=== PATIENT | male | born 1950 | race Caucasian/White ===

== ENCOUNTER 2021-05-10 09:13 | Emergency (ER) | payer OTHER, MEDICARE ==
[2021-05-10 09:24] VITALS: BP 152/77; PULSE 73; TEMP 98.4; BMI 25.0
== END 2021-05-10 11:16 | disposition home or self-care (01) ==
LOC: JER 09:13
DX: S09.90XA Unspecified injury of head, initial encounter (principal); W22.8XXA Striking against or struck by other objects, initial encounter
CPT/HCPCS: 70450-TC; 99284-25

== ENCOUNTER 2021-06-19 07:41 | Emergency (ER) | payer OTHER, MEDICARE ==
[2021-06-19 08:24] VITALS: BP 122/79; PULSE 118; TEMP 98.2; BMI 26.2
[2021-06-19 10:39] LABS: BASO % 0.5 % (0-2.0); EOS % 0.1 % (0-4.5); HEMATOCRIT 41.4 % (35.4-49); HEMOGLOBIN 13.1 GM/dL (11.7-16.9); LYMPH % 12.2 % (8-40); MCH 22.5 pg (25.7-33.7); MCHC 31.8 g/dl (32.0-35.9); MEAN CELL VOLUME 70.7 fl (80-96); MEAN PLT VOLUME 8.7 fl (7.5-11.1); MONO % 7.6 % (3.8-10.2); NEUT % 79.6 % (42.8-82.8); PLATELET COUNT 167 10^3/uL (134-434); RBC 5.85 M/mm3 (4.00-5.60); RDW 15.6 % (11.9-15.9); WHITE BLOOD COUNT 7.9 K/mm3 (4.0-10.0)
[2021-06-19 11:07] LABS: CALCIUM 9.2 mg/dL (8.5-10.1)
[2021-06-19 11:08] LABS: ALBUMIN 4.1 g/dl (3.4-5.0); BLOOD UREA NITROGEN 18.6 mg/dL (7-18)
[2021-06-19 11:11] LABS: CREATININE 0.9 mg/dL (0.55-1.3)
[2021-06-19 11:13] LABS: BILIRUBIN,TOTAL 0.7 mg/dL (0.2-1); TOT PROT 7.4 g/dl (6.4-8.2)
[2021-06-19] MEDS ORDERED: ACETAMINOPHEN 325 MG TABLET (FP) PO ONE (12:17)
[2021-06-19 12:18] LABS: URINE APPEARANCE TURBID; URINE COLOR RED
[2021-06-19 12:21] LABS: EPI CELLS 3+ /uL (0-25.1); URINE BACTERIA 2+ /uL (0-1359); URINE RBC >100 /uL (0-23.9)
[2021-06-19] MEDS ORDERED: ACETAMINOPHEN 325 MG TABLET (FP) ONE (12:30)
== END 2021-06-19 12:30 | disposition home or self-care (01) ==
LOC: JER 07:41
DX: R31.0 Gross hematuria (principal); R33.9 Retention of urine, unspecified
CPT/HCPCS: 36415; 80053; 81003; 85025; 87086; 99284-25

== ENCOUNTER 2021-06-19 17:50 | Emergency (ER) | payer OTHER, MEDICARE ==
[2021-06-19 18:04] VITALS: BP 125/76; PULSE 104; TEMP 97.7; BMI 25.8
== END 2021-06-19 20:29 | disposition home or self-care (01) ==
LOC: JER 17:50
DX: R31.0 Gross hematuria (principal)
CPT/HCPCS: 36415; 80053; 81003; 85025; 87086; 99283-25; 99284-25

== ENCOUNTER 2022-09-17 12:41 | Observation (INO) | payer OTHER, MEDICARE ==
[2022-09-17 12:51] VITALS: BMI 28.1
[2022-09-17 13:46] LABS: BASO % 0.7 % (0-2.0); EOS % 2.6 % (0-4.5); HEMATOCRIT 45.4 % (35.4-49); LYMPH % 13.7 % (8-40); MCH 21.8 pg (25.7-33.7); MCHC 30.8 g/dl (32.0-35.9); MEAN CELL VOLUME 70.8 fl (80-96); MEAN PLT VOLUME 8.4 fl (7.5-11.1); MONO % 5.9 % (3.8-10.2); NEUT % 77.1 % (42.8-82.8); PLATELET COUNT 192 10^3/uL (134-434); RBC 6.41 M/mm3 (4.00-5.60); RDW 15.3 % (11.9-15.9); WHITE BLOOD COUNT 7.3 K/mm3 (4.0-10.0)
[2022-09-17 13:54] LABS: INR 1.06 (0.83-1.09); PROTHROMBIN TIME (PATIENT) 12.2 SEC (9.7-13.0)
[2022-09-17 13:57] LABS: ACTIVATED PTT 30.7 SECONDS (25.2-36.5)
[2022-09-17 14:08] LABS: CALCIUM 9.6 mg/dL (8.5-10.1)
[2022-09-17 14:09] LABS: ALBUMIN 4.2 g/dl (3.4-5.0); BLOOD UREA NITROGEN 18.1 mg/dL (7-18)
[2022-09-17 14:12] LABS: CREATININE 1.1 mg/dL (0.55-1.3)
[2022-09-17 14:13] LABS: ANISOCYTOSIS 3+; BILIRUBIN,TOTAL 0.5 mg/dL (0.2-1); MACROCYTOSIS 0
[2022-09-17 14:14] LABS: TOT PROT 7.1 g/dl (6.4-8.2)
[2022-09-17] MEDS ORDERED: ENOXAPARIN NA (PORCINE) 80 MG/0.8 ML DISP.SYRIN SQ SCH (17:30)
[2022-09-17] MEDS ORDERED: ATORVASTATIN CA 20 MG TABLET (FP) PO SCH (22:00)
[2022-09-17] MEDS ORDERED: APIXABAN 5 MG TABLET PO SCH (22:00)
[2022-09-17] MEDS ORDERED: ATORVASTATIN CA 20 MG TABLET (FP) ONE (23:41)
[2022-09-17] MEDS ORDERED: ENOXAPARIN NA (PORCINE) 80 MG/0.8 ML DISP.SYRIN SQ ONE (23:41)
[2022-09-17] MEDS: ENOXAPARIN NA (PORCINE) 80 MG/0.8 ML DISP.SYRIN SQ SCH (23:54)
[2022-09-18 08:42] LABS: HEMATOCRIT 43.4 % (35.4-49); HEMOGLOBIN 13.4 GM/dL (11.7-16.9); MCH 21.9 pg (25.7-33.7); MCHC 30.9 g/dl (32.0-35.9); MEAN CELL VOLUME 70.9 fl (80-96); MEAN PLT VOLUME 8.6 fl (7.5-11.1); PLATELET COUNT 171 10^3/uL (134-434); RBC 6.12 M/mm3 (4.00-5.60); RDW 15.4 % (11.9-15.9); WHITE BLOOD COUNT 6.4 K/mm3 (4.0-10.0)
[2022-09-18] MEDS ORDERED: amLODIPine BESYLATE 2.5 MG TABLET (FP) ONE (08:53)
[2022-09-18] MEDS ORDERED: PANTOPRAZOLE 40 MG TABLET PO ONE (08:53)
[2022-09-18] MEDS ORDERED: ENOXAPARIN NA (PORCINE) 80 MG/0.8 ML DISP.SYRIN SQ ONE (08:53)
[2022-09-18] MEDS ORDERED: metoPROLOL SUCCINATE 25 MG TAB.SR.24H (FP) PO ONE ×2 (08:53→09:22)
[2022-09-18 08:59] LABS: CALCIUM 8.8 mg/dL (8.5-10.1)
[2022-09-18 09:00] LABS: BLOOD UREA NITROGEN 18.9 mg/dL (7-18)
[2022-09-18 09:03] LABS: PHOSPHOROUS 3.5 mg/dL (2.5-4.9)
[2022-09-18] MEDS ORDERED: metoPROLOL SUCCINATE 25 MG TAB.SR.24H (FP) PO SCH ×2 (10:00)
[2022-09-18] MEDS ORDERED: PANTOPRAZOLE 40 MG TABLET PO SCH (10:00)
[2022-09-18] MEDS ORDERED: amLODIPine BESYLATE 2.5 MG TABLET (FP) PO SCH (10:00)
[2022-09-18 11:40] VITALS: PULSE 79; RESP 20; TEMP 98.1
[2022-09-18] MEDS: ENOXAPARIN NA (PORCINE) 80 MG/0.8 ML DISP.SYRIN SQ SCH (11:51)
[2022-09-18 13:52] VITALS: BP 147/93
== END 2022-09-18 14:00 | disposition home or self-care (01) ==
LOC: JER 12:41 → JERBED 15:43 → INTOOBSV 15:43
PROVIDERS: ADMIT Internal Medicine; ATTEND Internal Medicine
PROC: 3E023GC Introduction of Other Therapeutic Substance into Muscle, Percutaneous Approach (ICD-10-PCS; principal; 2022-09-17)
DX: I48.91 Unspecified atrial fibrillation (principal); I10 Essential (primary) hypertension; E78.5 Hyperlipidemia, unspecified; Z29.8 Encounter for other specified prophylactic measures; R42 Dizziness and giddiness
CPT/HCPCS: 36415; 71045-TC-FY; 80048; 80053; 82728; 83540; 83550; 83735; 83880; 84100; 84484; 85025; 85027; 85610; 85730; 93005; 93010; 96372; 99285-25; C9803-CS; G0378; U0003; U0005

== ENCOUNTER 2022-11-29 05:16 | Day surgery (SDC) | payer OTHER, MEDICARE ==
[2022-11-27 14:17] VITALS: BMI 27.3
[2022-11-29] MEDS ORDERED: PROPOFOL 20 ML ONE (07:09)
[2022-11-29] MEDS ORDERED: LIDOCAINE HCL 2% 100 MG/5 ML DISP.SYRIN ONE (07:09)
[2022-11-29] MEDS ORDERED: ceFAZolin SODIUM 1 GM VIAL ONE (07:09)
[2022-11-29] MEDS ORDERED: ROCURONIUM BROMIDE 50 MG/5 ML SYRINGE ONE (07:10)
[2022-11-29] MEDS ORDERED: MIDAZOLAM HCL 2 MG/2 ML SINGLE DOSE VIAL ONE (07:10)
[2022-11-29] MEDS ORDERED: SUCCINYLCHOLINE CHLORIDE 200 MG/10 ML SYRINGE ONE (07:10)
[2022-11-29] MEDS ORDERED: BUPIVACAINE HCL/PF 0.5% (5MG/ML) 10 ML VIAL ONE (07:46)
[2022-11-29] MEDS ORDERED: BUPIVACAINE HCL/PF 0.5% (5MG/ML) 10 ML VIAL IJ ONE ×3 (08:09→08:51)
[2022-11-29] MEDS ORDERED: ceFAZolin SODIUM 1 GM VIAL IVPB ONE ×2 (08:09→08:37)
[2022-11-29] MEDS ORDERED: DEXAMETHASONE SOD PHOSPHATE 4 MG/1 ML VIAL ONE (08:41)
[2022-11-29] MEDS ORDERED: ONDANSETRON 4 MG/2 ML VIAL ONE ×2 (09:30→11:14)
[2022-11-29] MEDS ORDERED: ACETAMINOPHEN 500 MG TABLET (FP) PO PRN (10:57)
[2022-11-29] MEDS ORDERED: IBUPROFEN 600 MG TABLET (FP) PO PRN (10:57)
[2022-11-29] MEDS ORDERED: oxyCODONE HCL 5 MG TABLET PO PRN (11:36)
[2022-11-29] MEDS ORDERED: ONDANSETRON 4 MG/2 ML VIAL IVPUSH PRN (11:36)
[2022-11-29] MEDS ORDERED: LACTATED RINGERS SOLUTION 1,000 ML IV SCH (11:45)
[2022-11-29] MEDS ORDERED: HALOPERIDOL LACTATE 5 MG/ML IM ONE ×2 (13:26→13:32)
[2022-11-29] MEDS ORDERED: HALOPERIDOL DECANOATE 500 MG/5ML MDV IM ONE (13:32)
[2022-11-29 13:46] VITALS: RESP 20; TEMP 97.7
[2022-11-29 17:18] VITALS: BP 156/87; PULSE 85
== END 2022-11-29 15:22 | disposition home or self-care (01) ==
LOC: JASU-SURG 05:16
PROVIDERS: ATTEND Surgery
PROC: 8E0W4CZ Robotic Assisted Procedure of Trunk Region, Percutaneous Endoscopic Approach (ICD-10-PCS; 2022-11-29)
PROC: 0YU64JZ Supplement Left Inguinal Region with Synthetic Substitute, Percutaneous Endoscopic Approach (ICD-10-PCS; principal; 2022-11-29 08:00)
DX: K40.90 Unilateral inguinal hernia, without obstruction or gangrene, not specified as recurrent (principal)
CPT/HCPCS: 49650; S2900; 94760; C1781

== ENCOUNTER 2022-12-01 08:29 | Emergency (ER) | payer OTHER, MEDICARE ==
[2022-12-01 08:34] VITALS: RESP 18; BMI 27.3
[2022-12-01] MEDS ORDERED: SODIUM CHLORIDE 0.9% 500 ML INFUS.BAG IV ONE (08:59)
[2022-12-01 09:46] LABS: BASO % 0.6 % (0-2.0); EOS % 2.5 % (0-4.5); HEMOGLOBIN 13.1 GM/dL (11.7-16.9); LYMPH % 11.7 % (8-40); MCH 22.5 pg (25.7-33.7); MCHC 31.9 g/dl (32.0-35.9); MEAN CELL VOLUME 70.7 fl (80-96); MONO % 7.2 % (3.8-10.2); PLATELET COUNT 171 10^3/uL (134-434); RDW 16.8 % (11.9-15.9); WHITE BLOOD COUNT 7.5 K/mm3 (4.0-10.0)
[2022-12-01 09:58] LABS: ALBUMIN 3.9 g/dl (3.4-5.0); BLOOD UREA NITROGEN 19.3 mg/dL (7-18); CALCIUM 8.9 mg/dL (8.5-10.1)
[2022-12-01 10:02] LABS: BILIRUBIN,TOTAL 0.6 mg/dL (0.2-1)
[2022-12-01 10:49] VITALS: BP 153/88; PULSE 72; TEMP 98.1
== END 2022-12-01 10:30 | disposition home or self-care (01) ==
LOC: JER 08:29
DX: R19.7 Diarrhea, unspecified (principal)
CPT/HCPCS: 36415; 80053; 82272; 85025; 93005; 93010; 99284-25

== ENCOUNTER 2023-09-17 08:17 | Emergency (ER) | payer OTHER, MEDICARE ==
[2023-09-17 08:29] VITALS: BP 170/78; PULSE 65; RESP 18; TEMP 98.3; BMI 26.6
[2023-09-17 11:02] LABS: BASO % 0.4 % (0-2.0); EOS % 2.3 % (0-4.5); HEMATOCRIT 41.6 % (35.4-49); HEMOGLOBIN 13.1 GM/dL (11.7-16.9); LYMPH % 18.9 % (8-40); MCH 22.2 pg (25.7-33.7); MCHC 31.6 g/dl (32.0-35.9); MEAN CELL VOLUME 70.2 fl (80-96); MEAN PLT VOLUME 8.3 fl (7.5-11.1); MONO % 7.5 % (3.8-10.2); NEUT % 70.9 % (42.8-82.8); PLATELET COUNT 152 10^3/uL (134-434); RBC 5.93 M/mm3 (4.00-5.60); RDW 16.1 % (11.9-15.9)
[2023-09-17 11:03] LABS: POTASSIUM 4.2 mmol/L (3.5-5.1)
[2023-09-17 11:08] LABS: ALBUMIN 3.8 g/dl (3.4-5.0); BLOOD UREA NITROGEN 14.8 mg/dL (7-18); CALCIUM 8.7 mg/dL (8.5-10.1)
[2023-09-17 11:11] LABS: CREATININE 0.8 mg/dL (0.55-1.3)
[2023-09-17 11:13] LABS: BILIRUBIN,TOTAL 0.4 mg/dL (0.2-1); TOT PROT 7.4 g/dl (6.4-8.2)
== END 2023-09-17 12:14 | disposition home or self-care (01) ==
LOC: JERFT 08:17
DX: R53.83 Other fatigue (principal); M79.10 Myalgia, unspecified site; J02.9 Acute pharyngitis, unspecified; R63.0 Anorexia; R05.9 Cough, unspecified; U07.1 COVID-19
CPT/HCPCS: 0241U-QW; 36415; 80053; 85025; 99283-25

== ENCOUNTER 2024-02-23 07:19 | Emergency (ER) | payer OTHER, MEDICARE ==
[2024-02-23 07:54] VITALS: BMI 26.6
[2024-02-23] MEDS: MECLIZINE HCL 25 MG TABLET (FP) PO ONE ×2 (07:59→08:39)
[2024-02-23] MEDS ORDERED: diazePAM CARPU-JECT 10 MG/2 ML DISP.SYRIN ONE (08:16)
[2024-02-23] MEDS ORDERED: MECLIZINE HCL 25 MG TABLET (FP) ONE (08:17)
[2024-02-23] MEDS: diazePAM CARPU-JECT 10 MG/2 ML DISP.SYRIN IVPUSH ONE (08:39)
[2024-02-23 08:47] LABS: INR 0.98 (0.83-1.09); PROTHROMBIN TIME (PATIENT) 11.1 SEC (9.7-13.0)
[2024-02-23 08:48] LABS: BASO % 0.8 % (0-2.0); HEMATOCRIT 42.9 % (35.4-49); HEMOGLOBIN 13.4 GM/dL (11.7-16.9); LYMPH % 15.3 % (8-40); MCH 22.2 pg (25.7-33.7); MCHC 31.2 g/dl (32.0-35.9); MEAN CELL VOLUME 71.3 fl (80-96); MEAN PLT VOLUME 8.4 fl (7.5-11.1); MONO % 5.9 % (3.8-10.2); PLATELET COUNT 187 10^3/uL (134-434); RBC 6.01 M/mm3 (4.00-5.60); RDW 15.7 % (11.9-15.9); WHITE BLOOD COUNT 7.7 K/mm3 (4.0-10.0)
[2024-02-23 08:50] LABS: ACTIVATED PTT 28.4 SECONDS (25.2-36.5)
[2024-02-23 09:09] LABS: POTASSIUM 3.9 mmol/L (3.5-5.1)
[2024-02-23 09:11] LABS: ALBUMIN 3.8 g/dl (3.4-5.0); BLOOD UREA NITROGEN 14.4 mg/dL (7-18); CALCIUM 9.3 mg/dL (8.5-10.1)
[2024-02-23 09:15] LABS: CREATININE 0.9 mg/dL (0.55-1.3)
[2024-02-23 09:16] LABS: TOT PROT 7.2 g/dl (6.4-8.2)
[2024-02-23 09:19] LABS: BILIRUBIN,TOTAL 0.5 mg/dL (0.2-1)
[2024-02-23] MEDS ORDERED: METOPROLOL TARTRATE 25 MG TABLET (FP) ONE (11:16)
[2024-02-23] MEDS ORDERED: busPIRone HCL 5 MG TABLET ONE (11:16)
[2024-02-23] MEDS: busPIRone HCL 5 MG TABLET PO ONE (11:23)
[2024-02-23] MEDS: METOPROLOL TARTRATE 25 MG TABLET (FP) PO ONE (11:23)
[2024-02-23 11:47] VITALS: BP 133/80; PULSE 106
[2024-02-23 11:49] VITALS: RESP 20; TEMP 98
== END 2024-02-23 12:06 | disposition home or self-care (01) ==
LOC: JER 07:19
PROC: 3E033GC Introduction of Other Therapeutic Substance into Peripheral Vein, Percutaneous Approach (ICD-10-PCS; principal; 2024-02-23)
DX: R42 Dizziness and giddiness (principal); Z20.822 Contact with and (suspected) exposure to COVID-19
CPT/HCPCS: 0241U-QW; 36415; 70450-TC; 70496-TC; 70498-TC; 71046-TC-FY; 80053; 82550; 83036; 84153; 84484; 85025; 85610; 85730; 86850; 86900; 86901; 99285-25; Q9967

== ENCOUNTER 2024-07-06 08:21 | Emergency (ER) | payer OTHER, MEDICARE ==
[2024-07-06 08:35] VITALS: TEMP 98; BMI 25.0
[2024-07-06 09:58] LABS: HEMATOCRIT 44.8 % (35.4-49); HEMOGLOBIN 13.8 GM/dL (11.7-16.9); MCH 21.9 pg (25.7-33.7); MCHC 30.9 g/dl (32.0-35.9); MEAN CELL VOLUME 71.1 fl (80-96); MEAN PLT VOLUME 8.3 fl (7.5-11.1); PLATELET COUNT 224 10^3/uL (134-434); RDW 16.5 % (11.9-15.9); WHITE BLOOD COUNT 8.5 K/mm3 (4.0-10.0)
[2024-07-06] MEDS ORDERED: METOPROLOL TARTRATE 5 MG/5 ML VIAL ONE ×2 (10:03→11:14)
[2024-07-06] MEDS: METOPROLOL TARTRATE 5 MG/5 ML VIAL IVPUSH ONE ×2 (10:13→11:22)
[2024-07-06] MEDS: METOCLOPRAMIDE HCL INJECTION 10 MG/2 ML VIAL IVPUSH ONE (10:14)
[2024-07-06 10:36] LABS: POTASSIUM 4.7 mmol/L (3.5-5.1)
[2024-07-06 10:38] LABS: BLOOD UREA NITROGEN 18.9 mg/dL (7-18); CALCIUM 9.8 mg/dL (8.5-10.1)
[2024-07-06 10:43] LABS: BILIRUBIN,TOTAL 0.5 mg/dL (0.2-1); TOT PROT 7.9 g/dl (6.4-8.2)
[2024-07-06 10:52] LABS: CREATININE 0.9 mg/dL (0.55-1.3)
[2024-07-06] MEDS ORDERED: METOPROLOL TARTRATE 25 MG TABLET (FP) ONE ×2 (12:01→13:21)
[2024-07-06] MEDS: METOPROLOL TARTRATE 25 MG TABLET (FP) PO ONE ×2 (12:05→13:24)
[2024-07-06 13:20] VITALS: RESP 20
[2024-07-06 13:30] LABS: HIV INTERPRETATION NEGATIVE (NEGATIVE)
[2024-07-06 14:33] VITALS: BP 105/88; PULSE 109
== END 2024-07-06 14:47 | disposition home or self-care (01) ==
LOC: JER 08:21
PROC: 3E033GC Introduction of Other Therapeutic Substance into Peripheral Vein, Percutaneous Approach (ICD-10-PCS; principal; 2024-07-06)
PROC: 3E033GC Introduction of Other Therapeutic Substance into Peripheral Vein, Percutaneous Approach (ICD-10-PCS; 2024-07-06)
DX: R00.2 Palpitations (principal); I48.91 Unspecified atrial fibrillation
CPT/HCPCS: 36415; 71045-TC-FY; 80053; 84484; 85027; 86803; 87389; 93005; 93010; 99285-25

== ENCOUNTER 2025-03-07 09:28 | Inpatient (IN) | payer OTHER, MEDICARE ==
[2025-03-07] MEDS: LACTATED RINGERS SOLUTION 1000 ML INFUS.BAG IV ONE ×2 (10:11→13:44)
[2025-03-07 10:28] LABS: ABSOLUTE IMMATURE GRANULOCYTES 0.06 x10^3/uL (0.0-0.031); BASOPHILS # 0.08 x10^3/uL (0.01-0.08); EOSINOPHIL % 3.1 % (0.8-7.0); EOSINOPHILS # 0.29 x10^3/uL (0.04-0.54); MCHC 29.3 g/dl (32.3-36.5); MEAN CELL VOLUME 74.4 fl (79.0-92.2); MEAN PLT VOLUME 11.3 fl (9.4-12.4); MONOCYTE # 0.76 x10^3/uL (0.30-0.82); MONOCYTE % 8.1 % (5.3-12.2); RDW 16.5 % (12.2-16.6)
[2025-03-07 10:59] LABS: CO2 26.0 mmol/L (21-32); GLUCOSE,RANDOM 119.0 mg/dL (74-106)
[2025-03-07 11:02] LABS: CREATININE 1.0 mg/dL (0.55-1.3); SGPT/ALT 20.0 U/L (13-61)
[2025-03-07 11:03] LABS: SGOT/AST 15.0 U/L (15-37)
[2025-03-07 11:04] LABS: TOT PROT 7.4 g/dl (6.4-8.2)
[2025-03-07 11:05] LABS: ALK PHOS 79.0 U/L (45-117)
[2025-03-07 11:56] LABS: URINE APPEARANCE CLEAR; URINE BILIRUBIN NEGATIVE (NEGATIVE); URINE COLOR YELLOW; URINE GLUCOSE (UA) NEGATIVE (NEGATIVE); URINE KETONE TRACE (NEGATIVE); URINE LEUK ESTERASE NEGATIVE (NEGATIVE); URINE NITRITE NEGATIVE (NEGATIVE); URINE PROTEIN TRACE (NEGATIVE); URINE UROBILINOGEN 0.2 mg/dL (0.2-1.0)
[2025-03-07] MEDS: ACETAMINOPHEN 325 MG TABLET (FP) PO PRN (22:40)
[2025-03-07 23:56] LABS: HCV DIAGNOSTIC IN-HOUSE W/RFLX NON-REACTIVE (NONREACTIVE)
[2025-03-08 05:19] VITALS: BMI 26.2
[2025-03-08 07:05] LABS: ABSOLUTE IMMATURE GRANULOCYTES 0.03 x10^3/uL (0.0-0.031); BASOPHILS # 0.06 x10^3/uL (0.01-0.08); EOSINOPHIL % 6.4 % (0.8-7.0); EOSINOPHILS # 0.46 x10^3/uL (0.04-0.54); MCHC 29.0 g/dl (32.3-36.5); MEAN CELL VOLUME 74.5 fl (79.0-92.2); MEAN PLT VOLUME 11.5 fl (9.4-12.4); MONOCYTE # 0.73 x10^3/uL (0.30-0.82); MONOCYTE % 10.1 % (5.3-12.2); RDW 16.2 % (12.2-16.6)
[2025-03-08 07:31] LABS: CO2 31.0 mmol/L (21-32); GLUCOSE,RANDOM 101.0 mg/dL (74-106)
[2025-03-08 07:34] LABS: CREATININE 0.9 mg/dL (0.55-1.3); SGOT/AST 14.0 U/L (15-37); SGPT/ALT 17.0 U/L (13-61)
[2025-03-08 07:35] LABS: TOT PROT 6.4 g/dl (6.4-8.2)
[2025-03-08 07:36] LABS: ALK PHOS 63.0 U/L (45-117)
[2025-03-08] MEDS: PANTOPRAZOLE 40 MG TABLET PO SCH (09:46)
[2025-03-08] MEDS: METOPROLOL TARTRATE 5 MG/5 ML VIAL IVPUSH ONE (10:11)
[2025-03-08] MEDS ORDERED: SUCRALFATE 1 GM/10 ML UNIT DOSE CUPS PO SCH (12:00)
[2025-03-08] MEDS: SUCRALFATE 1 GM/10 ML UNIT DOSE CUPS PO SCH (13:57)
[2025-03-08 14:19] LABS: LDL CHOLESTEROL (ONLY SJRH) 76.0 mg/dL (5-100)
[2025-03-08 14:22] LABS: N-TERMINAL BNP 3007.2 pg/ml (5-450)
[2025-03-08] MEDS: RIVAROXABAN 20 MG TABLET PO SCH (17:37)
[2025-03-08] MEDS: LISINOPRIL 5 MG TABLET PO ONE (17:59)
[2025-03-08 19:37] LABS: HIV INTERPRETATION NEGATIVE (NEGATIVE)
[2025-03-08] MEDS: ATORVASTATIN CA 20 MG TABLET (FP) PO SCH (21:41)
[2025-03-09 03:30] VITALS: RESP 18
[2025-03-09 08:06] LABS: ABSOLUTE IMMATURE GRANULOCYTES 0.05 x10^3/uL (0.0-0.031); BASOPHILS # 0.08 x10^3/uL (0.01-0.08); EOSINOPHIL % 6.3 % (0.8-7.0); EOSINOPHILS # 0.54 x10^3/uL (0.04-0.54); MCHC 29.4 g/dl (32.3-36.5); MEAN CELL VOLUME 74.2 fl (79.0-92.2); MEAN PLT VOLUME 11.2 fl (9.4-12.4); MONOCYTE # 0.80 x10^3/uL (0.30-0.82); MONOCYTE % 9.3 % (5.3-12.2); RDW 16.3 % (12.2-16.6)
[2025-03-09 08:38] VITALS: BP 123/88; PULSE 103; TEMP 98.2
[2025-03-09 08:56] LABS: CO2 29.0 mmol/L (21-32); GLUCOSE,RANDOM 97.0 mg/dL (74-106)
[2025-03-09 08:59] LABS: CREATININE 0.9 mg/dL (0.55-1.3); SGOT/AST 13.0 U/L (15-37); SGPT/ALT 19.0 U/L (13-61)
[2025-03-09 09:01] LABS: TOT PROT 6.7 g/dl (6.4-8.2)
[2025-03-09 09:02] LABS: ALK PHOS 66.0 U/L (45-117)
[2025-03-09] MEDS: LISINOPRIL 5 MG TABLET PO SCH (09:14)
[2025-03-09] MEDS ORDERED: LISINOPRIL 5 MG TABLET PO SCH (10:00)
== END 2025-03-09 11:02 | disposition home or self-care (01) | DRG 310 ==
LOC: JER 09:28 → JERBED 13:16 → J4W 21:47 → OBSVTOIN 03-08 13:25
PROVIDERS: ADMIT Internal Medicine; ATTEND Internal Medicine
DX: I48.91 Unspecified atrial fibrillation (principal); E78.5 Hyperlipidemia, unspecified; K21.9 Gastro-esophageal reflux disease without esophagitis; F41.9 Anxiety disorder, unspecified; K44.9 Diaphragmatic hernia without obstruction or gangrene; I10 Essential (primary) hypertension
CPT/HCPCS: 0241U-QW; 36415; 71045-TC-FY; 80053; 80061; 81003; 83036; 83735; 83880; 84100; 84443; 84484; 85025; 86803; 86850; 86900; 86901; 87086; 87389; 93005; 93010; 93306-TC; 99285-25; G0378